=== PATIENT | female | born 1965 | race Caucasian/White ===

== ENCOUNTER → 2023-07-19 | Outpatient (CLI) | payer OTHER ==
--- NOTE | 2023-07-19 09:47 | CTL ---
EXAMINATION TYPE: CT Low Dose Lung DATE OF EXAM ORDERED: 07/19/2023 HISTORY: 58-year-old female F17.210, current smoker with 30 pack-year history. Lung cancer screening CT DLP: 82.[address] CTDI: 2.4 mGy Automated exposure control for dose reduction was used. SCREENING VISIT: Baseline COMPARISON: None TECHNIQUE: Low dose computed tomography scan was performed through the chest with coronal and sagitta l reconstructions. CT DIAGNOSTIC QUALITY: Satisfactory FINDINGS: The heart is normal size without pericardial effusion. Scattered three-vessel coronary calcifications are present. Aorta normal caliber with mild atherosclerotic arch calcifications and intramedullary vessel branchin g anatomy. No thoracic lymphadenopathy by CT size criteria. Mild/moderate diffuse bronchial wall thickening. Minimal emphysematous changes. Diffuse reticular marvel nge throughout the lungs especially along the periphery of the lungs with groundglass change in the s ubpleural lower lungs. There is no [place] honeycombing. No suspicious dominant nodule is seen. Visualized upper abdomen shows a calcified granuloma within the spleen. Bones: No osseous destructive process. IMPRESSION: 1. Lung RADS 1, negative. No suspicious pulmonary nodules. 2. There is COPD with minimal emphysema. 3. However, more pronounced is diffuse reticular and groundglass change especially in the periphery w ith a mid to lower lung predominance. Correlate for possible etiologies including atypical/COVID pneu monia, post infectious scarring, and interstitial pneumonitis such as NSIP. Pulmonary medicine referr al if no established diagnosis. CT LUNG RAD AND CT CHEST RECOMMENDATION: Lung-Rad 1 Negative: Continue annual screening with LDCT in 12 months. S Modifier (other clinically significant findings): S, recommend pulmonary medicine referral if there is no established diagnosis.
== END | disposition home or self-care (01) ==
LOC: RADCTMAIN 07:00
PROVIDERS: ATTEND Family Medicine
DX: Z12.2 Encounter for screening for malignant neoplasm of respiratory organs (principal); J43.9 Emphysema, unspecified; J44.9 Chronic obstructive pulmonary disease, unspecified; F17.210 Nicotine dependence, cigarettes, uncomplicated
CPT/HCPCS: 71271